=== PATIENT | male | born 1950 | race American Indian/Alaskan Native ===

== ENCOUNTER 2017-10-30 06:33 | Day surgery (SDC) | payer BC, MEDICARE ==
[2017-10-30] MEDS ORDERED: ECOTRIN PO NR (07:05)
[2017-10-30] MEDS ORDERED: NACL 0.9% 500 ML 500 ML IV SCH (08:00)
[2017-10-30] MEDS ORDERED: NITROGLYCERIN SYRINGE 3 ML ONE (08:29)
[2017-10-30] MEDS ORDERED: CALAN ONE (08:29)
[2017-10-30] MEDS ORDERED: HEPARIN/NS 5000 UNIT/500ML(CATH LAB) 1,000 ML IR ONE (08:29)
[2017-10-30] MEDS ORDERED: VERSED ONE (08:30)
[2017-10-30] MEDS ORDERED: SUBLIMAZE ONE (08:30)
[2017-10-30] MEDS ORDERED: XYLOCAINE 1% 20 mL ONE (08:31)
[2017-10-30] MEDS: HEPARIN 10,000 UNITS/10 ML ONE ×2 (09:05→09:15)
[2017-10-30] MEDS ORDERED: NACL 0.9% 100 ML ONE (09:24)
--- NOTE | 2017-10-30 10:20 | Short Stay Summary ---
Short Stay Documentation Date of service: 10/30/17 - History H&P: obtained from office - Allergies and Medications Current Medications: Allergies Penicillins Allergy (Verified 10/30/17 07:07) Rash Home Medications Medication Instructions Recorded Confirmed Last Taken Type Aspirin EC [Aspirin Enteric Coated 81 mg PO QDAY 10/30/17 10/30/17 10/29/17 History TAB] AtorvaSTATin [Lipitor] 80 mg PO QHS 10/30/17 10/30/17 10/28/17 History Losartan [Cozaar] 25 mg PO QDAY 10/30/17 10/30/17 10/29/17 History Active Medications Sodium Chloride (Nacl 0.9% 500 Ml) 500 mls @ 50 mls/hr IV DIRECT GUMARO Stop: 10/30/17 17:59 Last Admin: 10/30/17 07:57 Dose: 50 mls/hr - Brief post op/procedure progress note Date of procedure: 10/30/17 Pre-op diagnosis: aortic stenosis Post-op diagnosis: same Procedure: see report Anesthesia: local Estimated blood loss: none Pathology: none - Disposition Condition at discharge: Good Disposition: [id number] TO HOME OR SELFCARE - Discharge Diagnoses (1) Aortic stenosis, severe Status: Chronic (2) CAD (coronary artery disease) Status: Acute Qualifiers: Coronary Disease-Associated Artery/Lesion type: [place] artery Associated angina: with stable angina (3) Smoker Status: Chronic (4) Hyperlipemia, mixed Status: Chronic Short Stay Discharge Plan Activity: advance as tolerated Diet: low fat, low cholesterol Wound: keep clean and dry Follow up with: OPAL KAUFMAN MD [Primary Care Provider] - 7 Days
--- NOTE | 2017-10-30 11:07 | Cardiac Catherization Report ---
LEFT HEART CATHETERIZATION AND FRACTIONAL FLOW RESERVE CLINICAL INFORMATION: This is a 67-year-old male with aortic stenosis, severe on echocardiogram; hypertension; hyperlipidemia; smoker, is here for a left heart catheterization. Moderate sedation was provided under supervision. A 1 mg Versed and 50 mcg fentanyl was given. Total sedation time was 40 minutes, it started at 9:02 a.m. and finished at 9:42 a.m. Procedure was performed via the right radial artery, sterile technique, local anesthesia, 6-[place] radial sheath inserted. PROCEDURE FINDINGS: Left system engaged with a JL3.5 catheter. FINDINGS: Left main is a large caliber vessel, patent. LAD is a large caliber vessel. Proximal ostial has a 50-60% lesion. The mid LAD has a 40% lesion, discrete stenosis. Diagonal 1 is a medium caliber vessel, is patent. LAD is a large caliber vessel and is wrap around the whole inferior wall and patent with mild luminal irregularities. Circumflex is a large codominant vessel is patent from proximally and distally. Obtuse marginal 1, obtuse marginal 2 and obtuse marginal 3 are medium caliber vessels that are patent. RCA engaged with a JR4 catheter, is a medium caliber vessel, codominant with proximal 40% lesion, distal patent. Small PDA patent. LV gram was able to cross into the aortic valve using an AR mod catheter and Glidewire and aortic pressure is 106/68 and LV pressure is 160/11, LVEDP of 28 mmHg. Was able to exchange out AR mod catheter for a Elías catheter and used a dual lumen pigtail and the patient's mean gradient was 46.7 mmHg and [id number]-[id number]-[id number] gradient was 62 mmHg. A pullback and the equalization of Filley catheter is noted. 1. In view of intermediate lesion of the LAD, use fractional flow reserve to LAD, engaged the left system EBU 3.5 guiding catheter. 2. An equalization of the FF wire crossed into the mid LAD and IV adenosine was given and the peak was 0.85, which is nonsignificant, removed the FFR wire. Multiple angiograms continued TAMI 3 flow, continuous stenosis 50-60% ostial proximal LAD, mid 40%, no dissection or perforation noted. 3. A 6-[place] guiding catheter taken on guidewire, 6-[place] radial sheath was discontinued. Radial dressing applied. No hematoma, no bleeding. SUMMARY: 1. Nonobstructive coronary artery disease of the ostial and proximal LAD 50-60% with an FFR of 0.85. Mid LAD 40%, short patent, left main patent. Obtuse marginal 1, 2 and 3 patent. RCA proximal 40%. 2. Normal LV function with moderate to severe aortic stenosis with a peak mean gradient 46.9 mmHg and tmms-og-ctri 62 mmHg. 3. The patient will be referred to [place] program for evaluation. JOB# [id number] JASMEET/MOLLY
[2017-10-30 14:52] VITALS: BP 124/68
== END 2017-10-30 14:30 | disposition home or self-care (01) ==
LOC: CATHLABREC 06:33
PROVIDERS: ATTEND Internal Medicine
DX: I35.0 Nonrheumatic aortic (valve) stenosis (principal); I10 Essential (primary) hypertension; E78.5 Hyperlipidemia, unspecified; F17.200 Nicotine dependence, unspecified, uncomplicated; Z88.0 Allergy status to penicillin; Z79.82 Long term (current) use of aspirin; Z79.899 Other long term (current) drug therapy
CPT/HCPCS: 85347; 93005; 93010; 93458; 93571; 99156; 99157; C1769; C1887; C1894; J0153; J1644; J2250; J3010; J7040; Q9967